=== PATIENT | female | born 1970 | race Two or more races ===

== ENCOUNTER 2016-06-18 01:02 | Emergency (ER) | payer SELFPAY ==
[~2016-06-18] VITALS: Ht 172.7 cm; Wt 83.9 kg
[2016-06-18] MEDS ORDERED: IV NS 0.9% 1,000 ML BAG IV ONE (01:30)
[2016-06-18] MEDS ORDERED: IV SET PRIMARY 1 EA INFUS.SET MC ONE (01:30)
[2016-06-18] MEDS ORDERED: ONDANSETRON HCL/PF 4 MG/2 ML VIAL IVP ONE (01:30)
[2016-06-18] MEDS ORDERED: ONDANSETRON HCL/PF 4 MG/2 ML VIAL ONE (01:30)
[2016-06-18] MEDS ORDERED: IV NS 0.9% 1,000 ML ONE (01:30)
[2016-06-18 03:09] VITALS: BP 120/78
== END 2016-06-18 03:11 | disposition home or self-care (01) ==
LOC: ER 01:04
DX: F10.10 Alcohol abuse, uncomplicated (principal); S80.02XA Contusion of left knee, initial encounter; R73.09 Other abnormal glucose; W18.30XA Fall on same level, unspecified, initial encounter; Y93.89 Activity, other specified; Y92.89 Other specified places as the place of occurrence of the external cause; Y99.8 Other external cause status
CPT/HCPCS: 70450; 73564; 73590; 82962; 96361; 96374; 99284; J2405; J7030; A4606; Z7610